=== PATIENT | male | born 1955 | race Caucasian/White ===

== ENCOUNTER 2018-12-11 12:01 | Emergency (ER) | payer BC ==
[2018-12-11 12:11] VITALS: BP 148/101
--- NOTE | 2018-12-11 12:54 | UC ---
General HPI - HPI Summary HPI Summary: 63 yo with complaint of left upper tongue stamp sized numbness for past 24 hours and 6 hours of left upper and lower lip anesthetic sensation as if he can' t control movement or he has had a novacaine injection for a tooth repair. Also left neck posterior "stiffness," elevated blood pressure and history of diabetic neuropathy. - History of Current Complaint Chief Complaint: UCSkin Stated Complaint: MOUTH NUMBNESS Time Seen by Provider: 12/11/18 12:04 Pain Intensity: 3 - Allergy/Home Medications Allergies/Adverse Reactions: Allergies Allergy/AdvReac Type Severity Reaction Status Date / Time No Known Allergies Allergy Verified 12/11/18 12:11 PMH/Surg Hx/FS Hx/Imm Hx Previously Healthy: Yes Endocrine History: Diabetes - on metformin Cardiovascular History: Hypertension - Surgical History Surgical History: Yes Surgery Procedure, Year, and Place: CHOLECYSTECTOMY, APPENDECTOMY, HERNIA REPAIR - Family History Known Family History: Positive: Hypertension, Diabetes, Other - liver disease - Social History 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 Neurological: Positive: Paresthesia - TONGUE, LIPS ON LEFT SIDE, Numbness. Negative: Headache, Weakness Psychological: Positive: Negative Is Patient Immunocompromised?: No Physical Exam - Summary Physical Exam Summary: Elevated blood pressure; normal neurological examination. Triage Information Reviewed: Yes Appearance: Well-Appearing Vital Signs: Initial Vital Signs Temp 98.6 F 12/11/18 12:06 Pulse 69 12/11/18 12:06 Resp 18 12/11/18 12:06 BP 148/101 12/11/18 12:06 Pulse Ox 97 12/11/18 12:06 Vital Signs Reviewed: Yes Eye Exam: Normal ENT Exam: Normal Dental Exam: Normal Neck exam: Normal Neck: Positive: Supple, Other: - "stiffness" left posterior neck along muscle Respiratory: Positive: Chest non-tender, Lungs clear, Normal breath sounds Cardiovascular: Positive: RRR, No Murmur, Pulses Normal Abdomen Description: Positive: Nontender, No Organomegaly, Soft Bowel Sounds: Positive: Present Musculoskeletal Exam: Normal Neurological Exam: Normal Neurological: Positive: Alert, Muscle Tone Normal Psychological Exam: Normal Skin Exam: Normal Course/Dx - Course Course Of Treatment: 63 yo with complaint of left upper tongue stamp sized numbness for past 24 hours and 6 hours of left upper and lower lip anesthetic sensation as if he can't control movement or he has had a novacaine injection for a tooth repair. Also left neck posterior "stiffness," elevated blood pressure and history of diabetic neuropathy. Normal physical examination except for subjective complaints. Patient is precise about symptoms. I discussed with the patient that this could be related to his teeth or jaw or it could be numbness from a more serious cause. I recommended that he go directly to the ED for further evaluation, as needed. Patient agreed to this plan. This could be an innocuous localized numbness that will resolve. It could be related to his diabetes or a localized nerve inflammation. However, it has progressed, and he has hypertension. It could be impingement on a nerve from a more concerning condition such as a mass or aneuyism. - Diagnoses Provider Diagnosis: Paresthesia Discharge - Sign-Out/Discharge Documenting (check all that apply): Patient Departure All imaging exams completed and their final reports reviewed: No Studies - Discharge Plan Condition: Stable Disposition: HOME-RECOMMEND TO ED Patient Education Materials: Paresthesia (ED), Acute Neck Pain (ED) Referrals: Lukasz Ceja III ARCHITECTURAL EXAMINER [Primary Care Provider] - Additional Instructions: WE DISCUSSED: Your symptoms would best be evaluated at the ED. I have spoken to Dr. Jiménez about you. Go to ED now. - Billing Disposition and Condition Condition: STABLE Disposition: Home-Recommend to ED
== END 2018-12-11 13:01 | disposition home health service (06) ==
LOC: UCEAST 12:01
DX: R20.2 Paresthesia of skin (principal); E11.9 Type 2 diabetes mellitus without complications; Z79.84 Long term (current) use of oral hypoglycemic drugs; I10 Essential (primary) hypertension; Z87.891 Personal history of nicotine dependence
CPT/HCPCS: 99211; G0463

== ENCOUNTER 2018-12-11 13:28 | Emergency (ER) | payer BC ==
--- NOTE | 2018-12-11 13:57 | ED ---
Neurological HPI - HPI Summary HPI Summary: This patient is a 63 year old M presenting to [facility] after being sent from [facility] for increasing facial numbness. The patient states yesterday morning he got up at 0630 and was brushing teeth and noticed a numb spot on his tongue in center left surface that is still numb today. He noticed it all day yesterday eating. This morning his left upper and lower lip are numb similar to dental Novocain numbness. He also has had trouble playing his flute due to what he describes is decreased motor control to the left side of his lips. Patient reports a stiff neck that he believes may be due to a pinched nerve. He also c/o reduced gustation. The patient rates the pain 3/10 in severity. Patient denies tingling , numbness, ALLRED, blisters, trouble speaking, facial droop, and an altered gait. Hx HLD and DM. no family hx of MS or CVA. There is a family history of lung CA and liver disease. - History of Current Complaint Chief Complaint: EDNeurologicalDeficit Stated Complaint: NUMBNESS ON LEFT SIDE OF MOUTH Time Seen by Provider: 12/11/18 13:43 Hx Obtained From: Patient Onset/Duration: Started days ago - 1, Still Present, Worse Since Timing: Constant Onset Severity: Mild Current Severity: Mild Pain Intensity: 3 Pain Scale Used: 0-10 Numeric Syncope Context: Loss of Consciousness: No Associated Signs and Symptoms: Positive: Negative - fever - Allergy/Home Medications Allergies/Adverse Reactions: Allergies Allergy/AdvReac Type Severity Reaction Status Date / Time No Known Allergies Allergy Verified 12/11/18 12:11 PMH/Surg Hx/FS Hx/Imm Hx Endocrine/Hematology History: Reports: Hx Diabetes - prediabetic Cardiovascular History: Reports: Hx Hypertension Psychiatric History: Denies: Hx Inpatient Treatment, Hx Community Mental Health Tx - Surgical History Surgery Procedure, Year, and Place: CHOLECYSTECTOMY, APPENDECTOMY, HERNIA REPAIR Infectious Disease History: No Infectious Disease History: Reports: Hx Tuberculosis - has had +TB test Denies: Traveled Outside the [place] in Last 30 Days - Family History Known Family History: Positive: Hypertension, Diabetes, Other - liver disease - Social History Alcohol Use: Rare Hx Substance Use: Yes Substance Use Type: Reports: Marijuana Hx Tobacco Use: Yes Smoking Status (MU): Former Smoker Review of Systems Negative: Fever, Chills Negative: Erythema Negative: Sore Throat Negative: Chest Pain Negative: Shortness Of Breath Gastrointestinal: Other - reduced gustation. Negative: Abdominal Pain, Vomiting, Nausea Negative: dysuria, hematuria Musculoskeletal: Other - stiff neck Negative: Myalgia, Edema Skin: Negative - blisters Negative: Rash Neurological: Negative - trouble speaking, and an altered gait Positive: Numbness - only at tongue and lips . Negative: Headache, Paresthesia , Syncope All Other Systems Reviewed And Are Negative: Yes Physical Exam - Summary Physical Exam Summary: Constitutional: Well-developed, Well-nourished, Alert. (-) Distressed Skin: Warm, Dry HENT: Normocephalic; Atraumatic, there is no significant lip swelling or angioedema Eyes: Conjunctiva normal Neck: Musculoskeletal ROM normal neck. (-) JVD, (-) Stridor, (-) Tracheal deviation Cardio: Rhythm regular, rate normal, Heart sounds normal; Intact distal pulses; The pedal pulses are 2+ and symmetric. Radial pulses are 2+ and symmetric. (-) Murmur Pulmonary/Chest wall: Effort normal. (-) Respiratory distress, (-) Wheezes, (-) Rales Abd: Soft. (-) Tenderness, (-) Distension, (-) Guarding, (-) Rebound Musculoskeletal: (-) Edema Lymph: (-) Cervical adenopathy Neuro: Alert, Oriented x3, Strength normal, Cranial nerves II-XII are grossly intact. (-) Dysmetria, (-) Nystagmus, (-) Ataxia by finger to nose testing, (-) Sensory deficit. Psych: Mood and affect Normal Triage Information Reviewed: Yes Vital Signs On Initial Exam: Initial Vitals Temp Pulse Resp BP Pulse Ox 97.6 F 62 18 163/100 96 12/11/18 13:38 12/11/18 13:38 12/11/18 13:38 12/11/18 13:38 12/11/18 13:38 Vital Signs Reviewed: Yes - Annette Coma Scale Best Eye Response: 4 - Spontaneous Best Motor Response: 6 - Obeys Commands Best Verbal Response: 5 - Oriented Coma Scale Total: 15 Diagnostics - Vital Signs Vital Signs Temp Pulse Resp BP Pulse Ox 12/11/18 13:38 97.6 F 62 18 163/100 96 - Laboratory Result Diagrams: 12/11/18 13:20 12/11/18 13:20 Lab Statement: Any lab studies that have been ordered have been reviewed, and results considered in the medical decision making process. - CT CT brain CT Interpretation Completed By: Radiologist Summary of CT Findings: no acute intracranial pathology. ED physician has reviewed this radiology report. Re-Evaluation - Re-Evaluation First Eval Re-Evaluation Time: 14:55 Comment: Dr. Lopez is bedside with the patient. Second Eval Re-Evaluation Time: 15:31 Comment: The patient is hypertensive but he denies any sx related to this. Course/Dx - Course Assessment/Plan: This patient is a 63 year old M presenting to [facility] after being sent from [facility] for increasing facial numbness. The patient states yesterday morning he got up at 0630 and was brushing teeth and noticed a numb spot on his tongue in center left surface that is still numb today. He noticed it all day yesterday eating. This morning his left upper and lower lip are numb similar to dental Novocain numbness. He also has had trouble playing his flute due to what he describes is decreased motor control to the left side of his lips. Patient reports a stiff neck that he believes may be due to a pinched nerve. He also c/o reduced gustation. The patient rates the pain 3/10 in severity. Patient denies tingling, numbness, ALLRED, blisters, trouble speaking, and an altered gait. Hx HLD and DM. no family hx of MS or CVA. There is a family history of lung CA and liver disease. Blood work obtained. Brain CT reveals, per radiologist, no acute intracranial pathology. Patient will be discharged and follow up from Dr. Lopez. He was also instructed to increase his dose of norvasc. The patient is agreeable with this plan. - Diagnoses Provider Diagnoses: Uncontrolled hypertension, Facial paresthesia - Physician Notifications Discussed Care Of Patient With: Constantin Lopez Time Discussed With Above Provider: 14:17 Instructed by Provider To: Other - Dr. Lopez and he will evaluated the patient. 1505 Dr Bernardo Lopez does not believe it is a stroke and he will f/u with the patient in his office. He also suggested monitoring the patients BP. Discharge - Sign-Out/Discharge Documenting (check all that apply): Patient Departure - Discharge Plan Condition: Stable Disposition: HOME Patient Education Materials: Chronic Hypertension (DC), Paresthesia (ED) Referrals: Constantin Lopez MD [Medical Doctor] - 2 Days Additional Instructions: Please increase your norvasc to 5 mg a day. RETURN TO THE EMERGENCY DEPARTMENT FOR CHANGING OR WORSENING SYMPTOMS - Attestation Statements Document Initiated by Scribe: Yes Documenting Scribe: Beau Greene Provider For Whom Scribe is Documenting (Include Credential): Genaro Jiménez MD Scribe Attestation: Beua Hernández , scribed for Genaro Jiménez MD on 12/11/18 at 1536. Status of Scribe Document: Ready
[2018-12-11 14:20] LABS: Hematocrit 43 % (42-52); Hemoglobin 14.7 g/dl (14.0-18.0); Mean Corpuscular HGB Conc 34 g/dl (31-36); Mean Corpuscular Hemoglobin 30 pg (27-31); Mean Corpuscular Volume 88 fL (80-94); Mean Platelet Volume 7.6 fL (7.4-10.4); Platelet Count 249 10^3/ul (150-450); Red Blood Count 4.87 10^6/ul (4.00-5.40); Red Cell Distribution Width 14 % (10.5-15); White Blood Count 7.9 10^3/ul (3.5-10.8)
[2018-12-11 14:38] LABS: Albumin 4.5 g/dL (3.2-5.2); Albumin/Globulin Ratio 1.6 (1-3); BUN/Creatinine Ratio 19.5 (8-20); Calcium 9.4 mg/dL (8.6-10.3); EGFR Non-African American 95.5 (>60); Globulin 2.9 g/dL (2-4); Magnesium 2.2 mg/dL (1.9-2.7); Potassium 3.6 mmol/L (3.5-5.0); Total Protein 7.4 g/dL (6.4-8.9)
[2018-12-11] MEDS ORDERED: amLODIPine TAB* 5 MG PO ONE (15:33)
[2018-12-11 15:47] VITALS: BP 172/100
--- NOTE | 2018-12-11 19:45 | CONS ---
CC: Dr. Lukasz Ceja * CONSULTATION REPORT: DATE OF CONSULT: 12/11/18 LOCATION: He is currently in the ER, bed 8. PRIMARY CARE PROVIDER: Dr. Lukasz Ceja. REASON FOR CONSULTATION: Facial numbness. HISTORY OF PRESENT ILLNESS: Mr. Black is a very nice 63-year-old gentleman, who has a history of hypertension and "prediabetes" and takes medications for those , who has been in his usual state of health when yesterday morning he was brushing his teeth when he noticed a numb spot on his tongue in the center, which remains numb and also some numbness in the left side of his lips upper and lower. He notes that it feels like when he has been to the dentist, it is wearing off. He does play the flute and he says he has some trouble controlling that side of his mouth and that air has been leaking out. He denies any problems swallowing. He denies any problems speaking. He says that salt may taste differently, but otherwise, he has been in his usual state of health. He denies any chest pain, shortness of breath, dyspnea on exertion, recent illnesses, no recent tinnitus or earaches, no viral illnesses, no flu. He denies any headaches, any history of blisters, any drooping of his face. He has had no focal numbness, tingling, or weakness in his arms or legs. He notes no pain in his face. He notes no right-sided symptoms. His symptoms have largely remained the same, no real worsening, no real improvement since yesterday morning. He has not fallen. He sustained no trauma to his head. He has had no nausea, vomiting, diarrhea, constipation. Otherwise, he has been in his usual state of health. PAST MEDICAL HISTORY: Significant for prediabetes and hypertension. PAST SURGICAL HISTORY: Includes appendectomy and cholecystectomy. MEDICATIONS: Current Mediations at home: 1. Metformin 500 mg b.i.d. 2. Losartan 25 mg daily. 3. Glucosamine and chondroitin. 4. Aspirin 81 mg daily. 5. Amlodipine 2.5 mg daily. ALLERGIES: He has no known drug allergies. FAMILY HISTORY: Significant for lung cancer and liver disease, but otherwise no neurologic issues, no seizures, no strokes. SOCIAL HISTORY: He drinks about a 6 pack a week. No tobacco use for the last 7 to 8 years. He does smoke pot occasionally, but no other illicit substance use. 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 REVIEW OF SYSTEMS: Review of systems and 14-organ systems as noted above. No fevers, chills, no sore throat, chest pain, shortness of breath, no nausea, vomiting, diarrhea, constipation, hematuria, stiff neck, vision changes, myalgias, blisters, rashes. PHYSICAL EXAM: Vital Signs: Temperature 97.6, pulse rate of 63, respiratory rate of 18, pulse ox of 96%, blood pressure 163/100. General: He is a well- nourished, well-developed gentleman in no acute distress. He is siting in his hospital bed. He is very pleasant, well dressed, well groomed. HEENT: Normocephalic, atraumatic. Sclerae are anicteric. Mucous membranes are moist. Oropharynx is clear. Nares are patent. Neck: Supple. No thyromegaly, no carotid bruit, no meningismus. Chest: Clear to auscultation bilaterally. Cardiovascular: Regular rate and rhythm. Abdomen: Nontender, nondistended, obese. Extremities: No clubbing, cyanosis, or edema. Skin: Warm and dry. He has no rashes on his face. No blisters. Neurologic: He is awake, alert, oriented x3. Speech is fluent. There is no dysarthria. Repetition is intact. Recall of recent and remote events is intact. Vocabulary is intact. His mood is euthymic. Affect and mood congruent. Cranial nerves II through XII. Pupils are equal, round, and reactive to light and accommodation. Extraocular muscles are intact without nystagmus or diplopia. Visual vila are full. There is no ptosis. His face is symmetric. There is no weakness in the upper or lower face. He has mild loss of light touch and pinprick in the left upper lip and lower lip that shows nonphysiologic splitting. He also has a patch of numbness to pin prick that covers the midline surface of his tongue. His hearing is intact bilaterally. His palate raises symmetrically. His tongue is midline. There is no weakness noted. There are no fasciculations or atrophy of his tongue. His sternocleidomastoid and trapezius are 5/5, motor exam is 5/ 5 throughout. No drift. Tone and bulk are both normal. No fasciculations noted. Sensation is intact to light touch and pin prick throughout. There are no focal deficits. [id number] and rapid alternating movements are intact. [id number]-[id number] is intact. No tremors are noted. No dysdiadochokinesia or dysmetria is noted. DTRs are 1+ and symmetric in the upper and lower extremities. Withdrawal Babinski bilaterally. Gait: He has a normal gait, normal arm swing. He has minimal sway with eyes open and closed. Other than the facial symptoms, his neurological exam is nonfocal. DIAGNOSTIC STUDIES/LAB DATA: Lab work includes complete metabolic profile with a glucose of 129, ALT of 56. CBC is normal. CT scan of the head shows no acute abnormalities. I did review the films. ASSESSMENT AND PLAN: Mr. Black is a 63-year-old gentleman who has a history of hypertension, on medication, as well as "prediabetes," on metformin, who notes that his blood pressure is usually controlled. He has been in his usual state of health when yesterday morning, he developed sudden onset of numbness in the left upper and lower lip as well as well as a strip of numbness down the center of his tongue. He also noted some possible weakness when trying to play the flute at the left side of mouth. At this point, his symptoms persist, but he has had no other new symptoms. He is on an aspirin a day at home. He has nonphysiologic splitting on examination with a midline cut in his symptoms and he has midline sensory loss in his tongue. All of this is reassuring from a stroke standpoint. My suspicion that this is vascular in nature is extremely low. I suspect that this could be some nerve irritation, possibly a facial nerve V1 distribution. I have seen an early Nieto's with sensation changes as well and he does endorse some taste changes anteriorly on the tongue. While the sensation changes would not be explained by a Nieto's and he has no obvious weakness, I have seen similar symptoms with early Nieto's. I think conservative management at this point is appropriate. I would continue his aspirin, continue blood pressure control. He can have his lipids checked as an outpatient, would strive for good control, strive for good diabetes control. He smokes pot occasionally, but otherwise is a nonsmoker. I have told him that if any new symptoms develop or his symptoms worsen, he needs to come back to the ER immediately. I plan to follow him up at my clinic as well. He feels comfortable going home knowing that if he has any new symptoms, he will come back to the ER. I do not think he needs any further imaging or diagnostic testing at this time. I will see him as an outpatient. Thank you for the opportunity to participate in the care of this very nice patient. [id number]/[facility] #: [id number] DHAVAL
== END 2018-12-11 15:44 | disposition home or self-care (01) ==
LOC: ED 13:28
DX: I10 Essential (primary) hypertension (principal); R20.0 Anesthesia of skin; R73.03 Prediabetes; Z79.82 Long term (current) use of aspirin; Z87.891 Personal history of nicotine dependence
CPT/HCPCS: 36415; 70450; 80053; 82607; 83735; 84425; 85027; 99282; A9270-GY

== ENCOUNTER 2018-12-12 08:43 | Emergency (ER) | payer BC ==
--- NOTE | 2018-12-12 08:50 | ED ---
Neurological HPI - HPI Summary HPI Summary: 63 yo male presents to the ED with increased LEFT facial numbness. He tells me that his symptoms began 2 days ago with a numb sensation on the left side of his tongue that persisted all day. Yesterday this numbness continued and now included his left upper and lower lip. He presented to the Urgent Care yesterday and was advised to come to the ED for a further workup, which he did. Yesterday CT and bloodwork were negative. Dr. Lopez from neuro consulted and had a low suspicion for any acute disease - recommended f/u outpatient. Today the patient returns to the ED with spreading numbness and weakness to the left side of his face since waking this morning. Now encompassing left forehead, eye, and cheek. He denies headache, dizziness, vision changes, SOB, chest pain, or head injury. PMHx of HLD and "prediabetes". - History of Current Complaint Chief Complaint: EDNeurologicalDeficit Stated Complaint: LEFT SIDE OF FACE NUMBNESS Time Seen by Provider: 12/12/18 08:50 Hx Obtained From: Patient Onset/Duration: Gradual Onset Onset Severity: Mild Current Severity: Mild Pain Intensity: 3 - Allergy/Home Medications Allergies/Adverse Reactions: Allergies Allergy/AdvReac Type Severity Reaction Status Date / Time No Known Allergies Allergy Verified 12/12/18 08:49 Home Medications: Home Medications Losartan/Hydrochlorothiazide [Losartan-Hctz 100-12.5 mg Tab] 1 tab PO DAILY [History Confirmed 12/12/18] amLODIPine TAB* [Norvasc 5 mg TAB*] 5 mg PO DAILY 12/12/18 [History Confirmed ] PMH/Surg Hx/FS Hx/Imm Hx Endocrine/Hematology History: Reports: Hx Diabetes - prediabetic Cardiovascular History: Reports: Hx Hypertension Neurological History: Denies: Hx CVA, Hx Headaches, Hx Migraine, Hx Seizures, Hx Transient Ischemic Attacks (TIA) Psychiatric History: Denies: Hx Inpatient Treatment, Hx Community Mental Health Tx - Surgical History Surgery Procedure, Year, and Place: CHOLECYSTECTOMY, APPENDECTOMY, HERNIA REPAIR Infectious Disease History: No Infectious Disease History: Reports: Hx Tuberculosis - has had +TB test Denies: Traveled Outside the [place] in Last 30 Days - Family History Known Family History: Positive: Hypertension, Diabetes, Other - liver disease - Social History Alcohol Use: Rare Hx Substance Use: Yes Substance Use Type: Reports: Marijuana Hx Tobacco Use: Yes Smoking Status (MU): Former Smoker Review of Systems Constitutional: Negative Eyes: Negative Negative: Blurred Vision, Diplopia ENT: Negative Cardiovascular: Negative Negative: Palpitations, Chest Pain Respiratory: Negative Negative: Shortness Of Breath Gastrointestinal: Negative Skin: Negative Positive: Weakness - left face. Negative: Headache, Syncope, Slurred Speech Psychological: Normal All Other Systems Reviewed And Are Negative: Yes Physical Exam - Summary Physical Exam Summary: GENERAL: NAD. WDWN. No pain distress. SKIN: No rashes, sores, ulcers, masses, lesions. HEENT: Head: AT/NC. No raccoon eyes or battles sign. Eyes: PERRLA. EOM intact. Conjunctiva clear without inflammation or discharge. Ears: Hearing grossly normal. TMs intact, no bulging, erythema, or edema. Nose: Nasal mucosa pink and moist. NTTP maxillary and frontal sinus. Throat: Posterior oropharynx without exudates, erythema, or tonsillar enlargement. Uvula midline. NECK: Supple. Nontender. No lymphadenopathy. CHEST: CTAB. No r/r/w. No accessory muscle use. Breathing comfortably and in no distress. CV: RRR. Without m/r/g. Pulses intact. Brisk cap refill. MSK: FROM in B/L UEs and LEs with symmetric strength. NEURO: A&Ox3. 3 word recall, remote, recent memory, ability to follow 2-step directions, and attention intact. CN: II: Peripheral vila intact. Vision normal. III, IV, : EOMI. No nystagmus. PERRLA. V: Sensations intact and symmetric. Opens mouth and clenches teeth. VII: Left eyelid droop. Forehead does not wrinkle on left. Mild left sided mouth drooping. No tongue deviation. VIII: Hearing intact to finger rub. IX, X: Swallows and coughs. Uvula midline. XI: Shrugs shoulders. Turns head against resistance. XII: No tongue deviation. Opoyor-ds-sldm are intact. Gait with normal base. Romberg: maintains balance, no pronator drift. Normal speech. PSYCH: Age appropriate behavior. GCS 15 Triage Information Reviewed: Yes Vital Signs On Initial Exam: Initial Vitals Temp Pulse Resp BP Pulse Ox 97.3 F 72 16 173/97 94 12/12/18 08:45 12/12/18 08:45 12/12/18 08:45 12/12/18 08:45 12/12/18 08:45 Vital Signs Reviewed: Yes Diagnostics - Vital Signs Vital Signs Temp Pulse Resp BP Pulse Ox 12/12/18 08:45 97.3 F 72 16 173/97 94 - Laboratory Lab Statement: Any lab studies that have been ordered have been reviewed, and results considered in the medical decision making process. NIH Scale - NIH Scale Level of Consciousness: Alert/Keenly Responsive Ask Patient the Month and His/Her Age: Both Correct Ask Pt to Open/Close Eyes and Cable Hooker/Release Non-Paretic Hand: Both Correctly Best Gaze (Only Horizontal Eye Movement): Normal Visual Field Testing: No Visual Loss Facial Paresis-Pt to Smile & Close Eyes or Grimace Symmetry: Minor Paralysis Motor Function - Right Arm: No Drift-Holds 10 Seconds Motor Function - Left Arm: No Drift-Holds 10 Seconds Motor Function - Right Leg: No Drift-Holds 10 Seconds Motor Function - Left Leg: No Drift-Holds 10 Seconds Limb Ataxia-Must be out of Proportion to Weakness Present: Absent Sensory (Use Pinprick to Test Arms/Legs/Trunk/Face): Normal Best Language (Describe Picture, Name Items): No Aphasia Dysarthria (Read Several Words): Normal Extinction and Inattention: No Abnormality Total Score: 1 Re-Evaluation - Re-Evaluation First Eval Re-Evaluation Time: 11:09 Comment: Spoke with Dr. Lopez regarding MRI findings: Nothing acute. Findings common with HTN and DM - recommended better control out patient. Course/Dx - Course Course Of Treatment: MRI: IMPRESSION: 1. THERE ARE SCATTERED, SMALL, NONENHANCING FOCI OF ELEVATED T2/FLAIR SIGNAL WITHIN THE. PERIVENTRICULAR AND SUBCORTICAL WHITE MATTER. WHILE THESE FINDINGS ARE NONSPECIFIC, THEY. CAN BE SEEN IN ASSOCIATION WITH MIGRAINE HEADACHE, THE SEQUELA OF PREVIOUS INFECTION OR. INFLAMMATION, AND CHRONIC SMALL VESSEL ISCHEMIA. DEMYELINATING DISEASE IS ALSO WITHIN THE. DIFFERENTIAL, BUT IS CONSIDERED LESS LIKELY IN THE ABSENCE OF THE APPROPRIATE CLINICAL. PRESENTATION. 2. OTHERWISE UNREMARKABLE MRI OF THE BRAIN. THERE IS NO RESTRICTED DIFFUSION TO SUGGEST. ACUTE INFARCT. Discussed results with pt. 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 Lopez recommendeds medrol dose beth and antivirals. He was given solumedrol in the ED. Will rx for pt and have him f/u with his PCP for better BP/Glucose control. Advised to f/u with Dr. Lopez in 1-2 weeks for a recheck. Return to ED if symptoms worsen if he develops new symptoms. Pt voiced understanding and is in agreement with plan. - Diagnoses Provider Diagnoses: Nieto palsy, Facial droop - Physician Notifications Discussed Care Of Patient With: Constantin Lopez - Discussed case with Dr. Lopez of neurology. He will see pt in ED. Time Discussed With Above Provider: : - [address] Lopez recommends MRI to r/o CVA. If negative can dc with dx of nieto's. Instructed by Provider To: MD Will See In ED Discharge - Sign-Out/Discharge Documenting (check all that apply): Patient Departure - Discharge Plan Condition: Stable Disposition: HOME Prescriptions: methylPREDNISolone [Medrol Dosepak 4 MG*] 0 mg PO .SEE BETH INSTRUCTION #1 beth ValACYclovir (*) [Valtrex 1 GM(*)] 1 gm PO TID #30 tab Patient Education Materials: Nieto Palsy (ED) Referrals: Constantin Lopez MD [Medical Doctor] - 2 Weeks Lukasz Ceja III, NP [Primary Care Provider] - 1 Week Additional Instructions: If you develop a fever, shortness of breath, chest pain, new or worsening symptoms - please call your PCP or go to the ED. Your blood pressure was high at todays visit. Please see your primary provider within 4 weeks for recheck and re-evaluation. Please follow up with Dr. Lopez of neurology in 1-2 weeks for a recheck. Start taking your Medrol (steroid) tomorrow - Billing Disposition and Condition Condition: STABLE Disposition: Home
[2018-12-12] MEDS ORDERED: methylPREDNISolone 125 MG* 2 ML VIAL IV ONE (09:35)
[2018-12-12] MEDS ORDERED: Gadoteridol* (CONTRAST) 279.3 MG/ML 10 ML IV ONE (10:29)
[2018-12-12 11:56] VITALS: BP 138/90
--- NOTE | 2018-12-12 12:19 | CONS ---
CC: Dr. Lukasz Ceja * CONSULTATION REPORT: DATE OF CONSULT: 12/12/18 LOCATION: I am seeing him in the ER. PRIMARY CARE PROVIDER: Dr. Lukasz Ceja REASON FOR CONSULTATION: Facial weakness. HISTORY OF PRESENT ILLNESS: Please see my consultation, dated 12/11/18, from his ER visit yesterday for full detail as his initial presentation, but briefly , he is a 63-year-old gentleman, who has a history of hypertension and "prediabetes," on metformin and blood medications, who presented to the ER yesterday with a relatively acute onset of some facial numbness in the left upper and lower lip as well as down the middle of his tongue and some to the left side. 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 He also noticed some changes in taste on his tongue, but otherwise denied any other symptoms, had no other stroke-like symptoms. Examination was otherwise nonfocal and he had a CT scan done, which showed no acute abnormalities. After I saw the patient, I felt that this was likely some possible nerve irritation in the trigeminal nerves with no significant pain given the distribution, but he did have some physiologic splitting. He had no weakness in his face at that time that I could appreciate , and while I did at least consider the possibility of an early Nieto's, I felt at that time that Nieto's was less likely given no weakness. This morning, he states he woke up and he was okay and he does not remember being weak in the face, but sometime after 6 a.m., he noticed weakness in the left forehead and mouth. He felt that they were drooping some. He continues to have the same sensory symptoms around the left lips and tongue with some taste changes. Besides the weakness in his face, he has had no other symptoms. He denies any double vision. He feels like his vision may be a little blurry, but no hearing loss, no problem swallowing or speaking. No focal numbness, tingling, or weakness in his arms or legs. He has had no problems since I saw him yesterday. No new issues. No chest pain or shortness of breath. No nausea, vomiting, diarrhea, constipation, or fevers. Other than his numbness and tingling yesterday, he was in his usual state of health. He does take an aspirin at home. He takes blood pressure medications. His blood pressure in the ER yesterday was elevated, but improved. He denies any headache currently; otherwise, in his usual state of health. PAST MEDICAL HISTORY: "Prediabetes and hypertension." PAST SURGICAL HISTORY: Includes appendectomy and cholecystectomy. MEDICATIONS: Include: 1. Metformin 500 mg p.o. b.i.d. 2. Losartan 25 mg daily. 3. Glucosamine and chondroitin. 4. Aspirin 81 mg daily. 5. Amlodipine 2.5 mg daily. ALLERGIES: He has no known drug allergies. FAMILY HISTORY: Significant for lung cancer and liver disease, otherwise negative. SOCIAL HISTORY: He drinks 6 pack a week. No tobacco use. Smokes pot occasionally. No other illicit substances. REVIEW OF SYSTEMS: Review of systems and 14-organ systems as noted above, otherwise negative. PHYSICAL EXAM: Vital Signs: This morning, temperature of 97.3, pulse rate of 72, respiratory rate of 16, pulse ox of 94%, blood pressure 173/97. In general , he is a well-nourished, well-developed gentleman in no acute distress. He is sitting in his hospital bed. He is pleasant, well dressed, well groomed. HEENT : Normocephalic, atraumatic. Sclerae are anicteric. Mucous membranes are moist. Oropharynx is clear. Nares are patent. Neck is supple. No thyromegaly , no carotid bruits, no meningismus. Chest: Clear to auscultation bilaterally. Cardiovascular: Regular rate and rhythm. Abdomen: Nontender, nondistended. Extremities: No clubbing, cyanosis, or edema. Skin is warm and dry without lesions. Neurologic: He is awake, alert, oriented x3. His speech is fluent. There is no dysarthria. Repetition is intact. Recall of recent and remote events is intact. Vocabulary is intact. His mood is euthymic. Affect and mood congruent. Cranial nerves II through XII. Pupils are equal, round, and reactive to light. Extraocular muscles are intact. There is no diplopia or nystagmus. Facial sensation again diminished. Light touch and pinprick on the left upper and lower mouth and midline tongue to the left as well. Facial strength, he has weakness of the upper and lower face on the left with decreased wrinkling on the forehead and some flattening of his nasolabial fold on the left. He also has decreased eyelid strength and mild Nieto phenomenon when he closes his eyes. Hearing is intact bilaterally. Palate raises symmetrically. Tongue is midline. His motor exam is 5/5 throughout. No drift. Tone and bulk are both normal. Sensation is intact to light touch and pinprick. No focal deficits. DTRs are 1+ symmetric in the upper and lower extremities. Wytvxm-cu-ggrk and rapid alternating movements are intact. No tremor. No past pointing. Gait was not tested, but he has been walking fine without difficulty. DIAGNOSTIC STUDIES/LAB DATA: No labs this morning. ASSESSMENT AND PLAN: Mr. Black is a 63-year-old gentleman who presented to the hospital yesterday with what appeared to be a nerve irritation with some numbness in the left side of his face over his lips, no pain. He had some changes to his taste as well; while Nieto's palsy was considered at that point given the taste changes, there was no weakness noted and I thought that he might have a minor nerve irritation in the trigeminal nerve, which is causing some numbness and tingling, but no pain. This morning, he comes back. Sometime after 6 a.m. after he woke up, he noted that he started develop weakness in his left upper and lower face. He continues to have the numbness and tingling in the left upper and lower lip and tongue, does not cross midline. He otherwise has no other cranial nerve deficits. On examination, he does appear to have a Nieto's palsy with both upper and lower facial weakness as well as Nieto's phenomenon when he closes his eyes and as well as the numbness and tingling on his face. Cranial nerves are otherwise intact. This suggests a possibility of both cranial nerve V and XII, especially in light of his taste changes as well as his sensory changes, which is unusual. I have in my experience seen some facial tingling with an early Nieto's, but certainly this is a consideration, but given the fact that he has what appears to be several nerve nuclei involvement, I do think an MRI of his brain, specifically looking at his brainstem is appropriate. I am going to give him dose of Solu-Medrol now and I instructed the ER to discharge him home if his scan is negative with a prescription for Medrol-Dosepak and acyclovir. Other consideration would be something like a demyelinating disease, multiple sclerosis, although in a gentleman his age, this would be very unusual. Given the fact that it is both upper and lower face that are involved, that suggest lesion of the 7th nerve past or distal to the nucleus, there he could have some sort of local mass effect of the 7th nerve, although this would be very unlikely. We will have the MRI scan and assuming it is negative, he can go home, will have a followup with me. If it shows something, then obviously we will need to address that with additional workup. If his MRI is positive, they will call me and I will reevaluate the patient. Thank you for the opportunity to participate in the care of this very interesting patient. [id number]/[place] #: [id number] DHAVAL
== END 2018-12-12 11:57 | disposition home or self-care (01) ==
LOC: ED 08:43
DX: G51.0 Bell's palsy (principal); R29.810 Facial weakness; R73.03 Prediabetes; Z87.891 Personal history of nicotine dependence
CPT/HCPCS: 70553; 96374; 99283; A9579; J2930